=== PATIENT | male | born 1955 | race Hispanic/Latino ===

== ENCOUNTER 2020-06-17 22:10 | Inpatient (IN) | payer MEDICARE, OTHER ==
[~2020-06-17] VITALS: Ht 170.2 cm; Wt 90.5 kg
[2020-06-17] MEDS ORDERED: ALBUTEROL INHALER 90MCG/INH IH ONE (22:23)
[2020-06-17 22:38] LABS: ABG BASE EXCESS -3.6 mmol/L (-2.0-3.0); ABG HCO3 20.3 mmol/L (21.0-28.0); ABG OXYGEN SATURATION 90.3 % (95.0-99.0); ABG PCO2 34 mmHg (35-48)
[2020-06-17 23:09] LABS: BASOPHILS % (AUTO) 0.7 % (0.0-5.0); EOSINOPHILS % (AUTO) 9.5 % (0.0-8.0); HEMATOCRIT 47.9 % (42-54); MEAN CORPUSCULAR HEMOGLOBIN 31.8 pg (27.0-33.0); MEAN CORPUSCULAR HGB CONC 34.2 g/dL (32.0-36.0); MEAN CORPUSCULAR VOLUME 92.8 fL (79-99); MONOCYTES % (AUTO) 6.3 % (3.0-13.0); NEUTROPHILS % (AUTO) 63.1 % (40.0-77.0); PLATELET COUNT (AUTO) 265 K/uL (130-400); RED BLOOD CELL COUNT(AUTO) 5.16 MIL/uL (4.50-6.20); RED CELL DISTRIBUTION WIDTH 12.7 % (11.0-15.5); WHITE BLOOD COUNT (AUTO) 10.2 K/uL (4.8-10.8)
[2020-06-17 23:22] LABS: INR 0.98 (0.85-1.15); PROTHROMBIN TIME 10.7 SEC (9.6-11.6)
[2020-06-17] MEDS ORDERED: CEFTRIAXONE 1G VIAL ONE (23:22)
[2020-06-17] MEDS ORDERED: AZITHROMYCIN 250 MG TABLET PO ONE (23:22)
[2020-06-17] MEDS ORDERED: ACETAMINOPHEN WITH CODEINE 1 TAB TAB ONE (23:23)
[2020-06-17 23:24] LABS: PARTIAL THROMBOPLASTIN TIME 27.1 SEC (26.3-35.5)
[2020-06-17 23:29] LABS: ALBUMIN 4.5 g/dL (3.5-5.0); BILIRUBIN,TOTAL 0.5 mg/dL (0.2-1.0); TOTAL PROTEIN, SERUM 8.1 g/dL (6.0-8.3)
[2020-06-17 23:37] LABS: B-TYPE NATRIURETIC PEPTIDE 16 pg/mL (0-100)
[2020-06-17 23:48] LABS: APPEARANCE,URINE Clear (CLEAR); BILIRUBIN,URINE Negative (NEGATIVE); COLOR,URINE Yellow (YELLOW); GLUCOSE, URINE (UA) Negative (NEGATIVE); KETONES,URINE Trace mg/dL (NEGATIVE); LEUKOCYTE ESTERASE ,URINE Negative (NEGATIVE); NITRATE,URINE Negative (NEGATIVE); OCCULT BLOOD,URINE Negative (NEGATIVE); PH,URINE 5.5 (5.0-8.0); PROTEIN,URINE Negative (NEGATIVE); UROBILINOGEN,URINE 0.2 mg/dL (0.2-1.0)
[2020-06-17] MEDS ORDERED: SOLU-MEDROL 125MG VIAL ONE (23:48)
[2020-06-17] MEDS ORDERED: IPRATROPIUM/ALBUTEROL SULFATE 3 ML SOLUTION IH ONE (23:59)
[2020-06-18] MEDS ORDERED: LACTULOSE 20 GM/30 ML UDCUP PO PRN (00:15)
[2020-06-18] MEDS ORDERED: DIPHENHYDRAMINE HCL 25 MG CAPSULE PO PRN (00:15)
[2020-06-18] MEDS ORDERED: NITROGLYCERIN 0.4 MG SL TAB SL PRN (00:15)
[2020-06-18] MEDS ORDERED: MAG/ALUM/SIMETH 30 ML UDCUP PO PRN (00:15)
[2020-06-18] MEDS ORDERED: ACETAMINOPHEN 325 MG TAB PO PRN ×2 (00:15)
[2020-06-18] MEDS ORDERED: ONDANSETRON 4MG INJ IV PRN (00:15)
[2020-06-18] MEDS ORDERED: LACTATED RINGERS 1000ML 1,000 ML IV SCH (00:15)
[2020-06-18] MEDS ORDERED: DiphenhydrAMINE HCL 50 MG/ML VIAL IV PRN (00:15)
[2020-06-18] MEDS ORDERED: GUAIFENESIN-DM 200/20 MG 10 ML PO PRN (00:15)
[2020-06-18] MEDS ORDERED: LABETALOL 20MG SYG IV PRN (00:30)
[2020-06-18] MEDS ORDERED: LACTATED RINGERS 1000ML 1,000 ML IV ONE (01:43)
[2020-06-18] MEDS: IPRATROPIUM/ALBUTEROL SULFATE 3 ML SOLUTION IH SCH ×6 (02:00→22:00)
[2020-06-18] MEDS: SOLU-MEDROL 125MG VIAL IVP SCH (09:00)
[2020-06-18] MEDS: ENOXAPARIN SODIUM 40 MG/0.4 ML SYRINGE SQ SCH (09:00)
[2020-06-18] MEDS ORDERED: CEFTRIAXONE 1G VIAL IVP SCH (10:00)
[2020-06-18] MEDS ORDERED: DOXYCYCLINE HYCLATE 100 MG TABLET PO SCH (11:00)
[2020-06-18] MEDS ORDERED: CEFTRIAXONE 1G VIAL ONE (11:22)
[2020-06-18] MEDS ORDERED: DOXYCYCLINE HYCLATE 100 MG TABLET PO ONE (11:22)
[2020-06-18 19:00] VITALS: BP 150/92
[2020-06-19] MEDS: IPRATROPIUM/ALBUTEROL SULFATE 3 ML SOLUTION IH SCH ×4 (00:17→22:00)
[2020-06-19 00:24] VITALS: BP 120/83
[2020-06-19 00:44] LABS: BASOPHILS % (AUTO) 0.4 % (0.0-5.0); EOSINOPHILS % (AUTO) 0.2 % (0.0-8.0); HEMATOCRIT 44.9 % (42-54); LYMPHOCYTES % (AUTO) 9.7 % (21.0-51.0); MEAN CORPUSCULAR HGB CONC 34.3 g/dL (32.0-36.0); MEAN CORPUSCULAR VOLUME 93.2 fL (79-99); NEUTROPHILS % (AUTO) 82.2 % (40.0-77.0); PLATELET COUNT (AUTO) 267 K/uL (130-400); RED BLOOD CELL COUNT(AUTO) 4.82 MIL/uL (4.50-6.20); RED CELL DISTRIBUTION WIDTH 12.9 % (11.0-15.5); WHITE BLOOD COUNT (AUTO) 17.1 K/uL (4.8-10.8)
[2020-06-19 05:19] VITALS: BP 118/48
[2020-06-19 06:38] LABS: ALBUMIN 3.6 g/dL (3.5-5.0); BILIRUBIN,TOTAL 0.4 mg/dL (0.2-1.0); CREATININE 1.2 mg/dL (0.5-1.5); CRP QUANTITATIVE 5.7 mg/L (0.00-9.0); POTASSIUM 3.8 mmol/L (3.5-5.1)
[2020-06-19 06:59] VITALS: BP 121/77
[2020-06-19] MEDS: SOLU-MEDROL 125MG VIAL IVP SCH (08:46)
[2020-06-19] MEDS: ENOXAPARIN SODIUM 40 MG/0.4 ML SYRINGE SQ SCH (08:50)
[2020-06-19 10:34] VITALS: BP 124/80
[2020-06-19 15:32] VITALS: BP 150/91
[2020-06-19 21:06] VITALS: BP 160/97
[2020-06-20] VITALS: BP 116/80
[2020-06-20 00:37] LABS: BASOPHILS % (AUTO) 0.3 % (0.0-5.0); EOSINOPHILS % (AUTO) 0.2 % (0.0-8.0); HEMATOCRIT 42.8 % (42-54); LYMPHOCYTES % (AUTO) 15.5 % (21.0-51.0); MEAN CORPUSCULAR HEMOGLOBIN 31.8 pg (27.0-33.0); MEAN CORPUSCULAR HGB CONC 33.9 g/dL (32.0-36.0); MEAN CORPUSCULAR VOLUME 93.9 fL (79-99); NEUTROPHILS % (AUTO) 76.5 % (40.0-77.0); PLATELET COUNT (AUTO) 239 K/uL (130-400); RED BLOOD CELL COUNT(AUTO) 4.56 MIL/uL (4.50-6.20); RED CELL DISTRIBUTION WIDTH 12.8 % (11.0-15.5)
[2020-06-20] MEDS: IPRATROPIUM/ALBUTEROL SULFATE 3 ML SOLUTION IH SCH ×5 (02:00→19:02)
[2020-06-20 05:59] VITALS: BP 115/81
[2020-06-20 06:19] LABS: ALBUMIN 3.2 g/dL (3.5-5.0); BILIRUBIN,TOTAL 0.3 mg/dL (0.2-1.0); CREATININE 1.1 mg/dL (0.5-1.5); CRP QUANTITATIVE 2.8 mg/L (0.00-9.0); POTASSIUM 3.8 mmol/L (3.5-5.1); TOTAL PROTEIN, SERUM 6.4 g/dL (6.0-8.3)
[2020-06-20 08:02] VITALS: BP 121/88
[2020-06-20] MEDS: SOLU-MEDROL 125MG VIAL IVP SCH (08:48)
[2020-06-20] MEDS: ENOXAPARIN SODIUM 40 MG/0.4 ML SYRINGE SQ SCH (08:49)
[2020-06-20 11:47] VITALS: BP 121/78
[2020-06-20] MEDS: ZOSYN 3.375GM+NS 50ML 50 ML IV SCH ×2 (14:20→21:16)
[2020-06-20 16:27] VITALS: BP 115/69
[2020-06-20 20:00] VITALS: BP 126/67
[2020-06-20] MEDS ORDERED: IPRATROPIUM/ALBUTEROL SULFATE 3 ML SOLUTION IH ONE (22:09)
[2020-06-21] VITALS: BP 117/74
[2020-06-21] MEDS: IPRATROPIUM/ALBUTEROL SULFATE 3 ML SOLUTION IH SCH ×4 (00:11→19:17)
[2020-06-21] MEDS: ZOSYN 3.375GM+NS 50ML 50 ML IV SCH (03:56)
[2020-06-21 04:00] VITALS: BP 126/85
[2020-06-21 05:09] LABS: BASOPHILS % (AUTO) 0.3 % (0.0-5.0); EOSINOPHILS % (AUTO) 0.2 % (0.0-8.0); HEMATOCRIT 40.5 % (42-54); LYMPHOCYTES % (AUTO) 23.2 % (21.0-51.0); MEAN CORPUSCULAR HEMOGLOBIN 31.3 pg (27.0-33.0); MEAN CORPUSCULAR HGB CONC 33.6 g/dL (32.0-36.0); MEAN CORPUSCULAR VOLUME 93.1 fL (79-99); MONOCYTES % (AUTO) 7.8 % (3.0-13.0); NEUTROPHILS % (AUTO) 68.1 % (40.0-77.0); PLATELET COUNT (AUTO) 208 K/uL (130-400); RED BLOOD CELL COUNT(AUTO) 4.35 MIL/uL (4.50-6.20); RED CELL DISTRIBUTION WIDTH 12.8 % (11.0-15.5); WHITE BLOOD COUNT (AUTO) 9.2 K/uL (4.8-10.8)
[2020-06-21 05:56] LABS: ALBUMIN 3.1 g/dL (3.5-5.0); BILIRUBIN,TOTAL 0.2 mg/dL (0.2-1.0); CREATININE 1.1 mg/dL (0.5-1.5); CRP QUANTITATIVE 2.4 mg/L (0.00-9.0); POTASSIUM 3.6 mmol/L (3.5-5.1)
[2020-06-21] MEDS: BUDESONIDE 0.5 MG/2 ML INH IH SCH ×2 (06:49→19:17)
[2020-06-21 08:20] VITALS: BP 134/102
[2020-06-21] MEDS ORDERED: SOLU-MEDROL 40MG VIAL IVP SCH (09:00)
[2020-06-21] MEDS ORDERED: SULF500T8 PO (09:25)
[2020-06-21] MEDS ORDERED: FOLI0.4T6 PO (09:25)
[2020-06-21] MEDS ORDERED: HYDR200T4 PO (09:25)
[2020-06-21] MEDS ORDERED: METH2.5T6 PO (09:25)
[2020-06-21] MEDS: ENOXAPARIN SODIUM 40 MG/0.4 ML SYRINGE SQ SCH (09:36)
[2020-06-21 11:36] VITALS: BP 142/114
[2020-06-21] MEDS: SULFASALAZINE 500 MG TAB.DR PO SCH (12:41)
[2020-06-21] MEDS: HYDROXYCHLOROQUINE SULFATE 200 MG TAB PO SCH (12:41)
[2020-06-21] MEDS: FOLIC ACID 1 MG TABLET PO SCH (12:42)
[2020-06-21 16:13] VITALS: BP 149/106
[2020-06-21 20:56] VITALS: BP 117/82
[2020-06-22] MEDS: IPRATROPIUM/ALBUTEROL SULFATE 3 ML SOLUTION IH SCH ×3 (00:28→11:55)
[2020-06-22 00:51] VITALS: BP 121/89
[2020-06-22 03:55] VITALS: BP 122/92
[2020-06-22 06:10] LABS: BASOPHILS % (AUTO) 0.9 % (0.0-5.0); EOSINOPHILS % (AUTO) 2.9 % (0.0-8.0); HEMATOCRIT 42.3 % (42-54); LYMPHOCYTES % (AUTO) 36.4 % (21.0-51.0); MEAN CORPUSCULAR HGB CONC 33.3 g/dL (32.0-36.0); MONOCYTES % (AUTO) 7.7 % (3.0-13.0); NEUTROPHILS % (AUTO) 50.8 % (40.0-77.0); PLATELET COUNT (AUTO) 197 K/uL (130-400); RED BLOOD CELL COUNT(AUTO) 4.55 MIL/uL (4.50-6.20); RED CELL DISTRIBUTION WIDTH 12.7 % (11.0-15.5); WHITE BLOOD COUNT (AUTO) 8.2 K/uL (4.8-10.8)
[2020-06-22 06:24] LABS: ALBUMIN 3.2 g/dL (3.5-5.0); BILIRUBIN,TOTAL 0.4 mg/dL (0.2-1.0); CREATININE 1.1 mg/dL (0.5-1.5); POTASSIUM 4.2 mmol/L (3.5-5.1); TOTAL PROTEIN, SERUM 6.2 g/dL (6.0-8.3)
[2020-06-22] MEDS: BUDESONIDE 0.5 MG/2 ML INH IH SCH (06:38)
[2020-06-22 07:53] VITALS: BP 140/85
[2020-06-22] MEDS ORDERED: FOLIC ACID 1 MG TABLET PO SCH (09:00)
[2020-06-22] MEDS ORDERED: PREDNISONE 20 MG TABLET PO SCH (09:00)
[2020-06-22] MEDS ORDERED: LEVOFLOXACIN 500 MG TABLET PO SCH (09:00)
[2020-06-22] MEDS ORDERED: SULFASALAZINE 500 MG TAB.DR PO SCH (09:00)
[2020-06-22] MEDS ORDERED: HYDROXYCHLOROQUINE SULFATE 200 MG TAB PO SCH (09:00)
[2020-06-22] MEDS: ENOXAPARIN SODIUM 40 MG/0.4 ML SYRINGE SQ SCH (10:00)
[2020-06-22] MEDS: FOLIC ACID 1 MG TABLET PO SCH (10:00)
[2020-06-22] MEDS: SULFASALAZINE 500 MG TAB.DR PO SCH (10:01)
[2020-06-22] MEDS: HYDROXYCHLOROQUINE SULFATE 200 MG TAB PO SCH (10:01)
[2020-06-22] MEDS ORDERED: PRED20B PO (11:03)
[2020-06-22 11:18] VITALS: BP 126/90
[2020-06-28] MEDS ORDERED: METHOTREXATE SODIUM 2.5 MG TABLET PO SCH (09:00)
== END 2020-06-22 13:40 | disposition home or self-care (01) | DRG 189 ==
LOC: EDH 22:10 → EDHIP 06-18 00:10 → 3DH 06-18 18:51
PROVIDERS: ADMIT Family Medicine; ATTEND Family Medicine
DX: J96.01 Acute respiratory failure with hypoxia (principal); J44.1 Chronic obstructive pulmonary disease with (acute) exacerbation; I10 Essential (primary) hypertension; Z20.822 Contact with and (suspected) exposure to COVID-19; E66.9 Obesity, unspecified; F17.210 Nicotine dependence, cigarettes, uncomplicated; Z68.31 Body mass index [BMI] 31.0-31.9, adult; Z71.6 Tobacco abuse counseling; Z79.899 Other long term (current) drug therapy
CPT/HCPCS: 36415; 71045; 71250; 80053; 81003; 82550; 82728; 82803; 83605; 83880; 84145; 85025; 85378; 85610; 85730; 86140; 87040; 87077; 87186; 87426; 93005; 93306; 93356; 94640; 94664; 94760; 99291; G0378; J0696; J1650; J2543; J2920; J2930; J7120; U0003